=== PATIENT | female | born 1995 | race Caucasian/White ===

== ENCOUNTER 2017-02-24 04:09 | Emergency (ER) | payer OTHER ==
[~2017-02-24] VITALS: Ht 162.6 cm; Wt 65.0 kg
[2017-02-24 04:10] VITALS: BP 118/70; PULSE 94; RESP 16; TEMP 98.6; O2SAT 100
[2017-02-24 04:32] VITALS: BP 106/73; PULSE 97; RESP 16; O2SAT 99
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
[2017-02-24] MEDS ORDERED: BACL10TA PO (06:28)
== END 2017-02-24 06:45 | disposition home or self-care (01) ==
LOC: NEPD 04:09
DX: S16.1XXA Strain of muscle, fascia and tendon at neck level, initial encounter (principal); S39.012A Strain of muscle, fascia and tendon of lower back, initial encounter; V49.50XA Passenger injured in collision with unspecified motor vehicles in traffic accident, initial encounter; Y92.411 Interstate highway as the place of occurrence of the external cause
CPT/HCPCS: 70450; 72100; 72125; 84703; 99285